=== PATIENT | female | born 1965 | race Caucasian/White ===

== ENCOUNTER 2018-03-14 17:26 | Emergency (ER) | payer OTHER ==
[2018-03-14 17:41] VITALS: TEMP 100; BMI 26.4
[2018-03-14] MEDS ORDERED: SODIUM CHLORIDE 1,000 ML IV STA (17:47)
[2018-03-14] MEDS ORDERED: ACETAMINOPHEN 1000 MG/100 ML VIAL (NON FORMULARY) IVPB ONE (17:47)
[2018-03-14] MEDS ORDERED: ACETAMINOPHEN INJECTION 100 ML IVPB ONE (18:17)
[2018-03-14 18:24] LABS: BASO % 0.1 % (0-2.0); EOS % 2.3 % (0-4.5); HEMATOCRIT 36.9 % (32.4-45.2); LYMPH % 4.2 % (8-40); MCH 30.4 pg (25.7-33.7); MCHC 35.2 g/dl (32.0-36.0); MEAN CELL VOLUME 86.4 fl (80-96); MEAN PLT VOLUME 7.8 fl (7.5-11.1); MONO % 0.6 % (3.8-10.2); NEUT % 92.8 % (42.8-82.8); PLATELET COUNT 174 K/MM3 (134-434); RBC 4.27 M/mm3 (3.60-5.2); RDW 13.3 % (11.6-15.6); WHITE BLOOD COUNT 8.3 K/mm3 (4.0-10.0)
--- NOTE | 2018-03-14 18:33 | PDOC ---
History of Present Illness - History of Present Illness Initial Comments: 03/14/18 18:41 The patient is a 52 year old female, with a significant past medical history of HLD (diet controlled), who presents to the emergency department with, rigors and chills. She endorses a minute long episode of rigors while seeing a patient in her office today. She notes a associated weakness, loose stools, and one episode of nausea with emesis. She denies recent headache or dizziness. She denies recent dysuria, frequency, urgency or hematuria. She denies recent chest pain or shortness of breath. Allergies: NKDA <Catalina Chang - Last Filed: 03/14/18 18:46> - General History Source: Patient Exam Limitations: No Limitations <Dioni Francisco - Last Filed: 03/14/18 19:09> - General Chief Complaint: SIRS, Suspected/Possible Stated Complaint: FEVER Time Seen by Provider: 03/14/18 17:28 Past History <Catalina Chang - Last Filed: 03/14/18 18:46> - Past Medical History COPD: No - Suicide/Smoking/Psychosocial Hx Smoking History: Never smoked <Dioni Francisco - Last Filed: 03/14/18 19:09> - Past Medical History Allergies/Adverse Reactions: Allergies Allergy/AdvReac Type Severity Reaction Status Date / Time No Known Allergies Allergy Verified 03/14/18 17:36 Review of Systems - Review of Systems Able to Perform ROS?: Yes Comments:: 03/14/18 18:41 +GENERAL/CONSTITUTIONAL: +fever +chills. +weakness. HEAD, EYES, EARS, NOSE AND THROAT: No change in vision. No ear pain or discharge. No sore throat. CARDIOVASCULAR: No chest pain or shortness of breath. RESPIRATORY: No cough, wheezing, or hemoptysis. +GASTROINTESTINAL: +nausea, +vomiting, +diarrhea GENITOURINARY: No dysuria, frequency, or change in urination. MUSCULOSKELETAL: No joint or muscle swelling or pain. No neck or back pain. SKIN: No rash NEUROLOGIC: No headache, vertigo, loss of consciousness, or change in strength/ sensation. ENDOCRINE: No increased thirst. No abnormal weight change. HEMATOLOGIC/LYMPHATIC: No anemia, easy bleeding, or history of blood clots. ALLERGIC/IMMUNOLOGIC: No hives or skin allergy. All Other Systems: Reviewed and Negative <Catalina Chang - Last Filed: 03/14/18 18:46> *Physical Exam - Vital Signs Last Vital Signs Temp Pulse Resp BP Pulse Ox 100.0 F H 103 H 136/85 99 03/14/18 17:36 03/14/18 17:36 03/14/18 17:36 03/14/18 17:36 - Physical Exam Comments: 03/14/18 18:47 GENERAL: Awake, alert, and fully oriented, in no acute distress HEAD: No signs of trauma EYES: PERRLA, EOMI, sclera anicteric, conjunctiva clear NECK: Normal ROM, supple, no lymphadenopathy, JVD, or masses LUNGS: Breath sounds equal, clear to auscultation bilaterally. No wheezes, and no crackles HEART: Regular rate and rhythm, normal S1 and S2, no murmurs, rubs or gallops ABDOMEN: Soft, nontender. No guarding, no rebound. No masses EXTREMITIES: Normal range of motion, no edema. No clubbing or cyanosis. No cords, erythema, or tenderness NEUROLOGICAL: Cranial nerves II through XII grossly intact. Normal speech, normal gait SKIN: Warm, Dry, normal turgor, no rashes or lesions noted. <Catalina Chang - Last Filed: 03/14/18 18:46> - Vital Signs Last Vital Signs Temp Pulse Resp BP Pulse Ox 100.0 F H 103 H 136/85 99 03/14/18 17:36 03/14/18 17:36 03/14/18 17:36 03/14/18 17:36 <Dioni Francisco - Last Filed: 03/14/18 19:09> Moderate Sedation - Procedure Monitoring Vital Signs: Procedure Monitoring Vital Signs Temperature 100.0 F H 03/14/18 17:36 Pulse Rate 103 H 03/14/18 17:36 Respiratory Rate Blood Pressure 136/85 03/14/18 17:36 O2 Sat by Pulse Oximetry (%) 99 03/14/18 17:36 <Catalina Chang - Last Filed: 03/14/18 18:46> - Procedure Monitoring Vital Signs: Procedure Monitoring Vital Signs Temperature 100.0 F H 03/14/18 17:36 Pulse Rate 103 H 03/14/18 17:36 Respiratory Rate Blood Pressure 136/85 03/14/18 17:36 O2 Sat by Pulse Oximetry (%) 99 03/14/18 17:36 <Dioni Francisco - Last Filed: 03/14/18 19:09> ED Treatment Course - LABORATORY CBC & Chemistry Diagram: 03/14/18 18:00 03/14/18 18:00 - ADDITIONAL ORDERS Additional order review: 03/14/18 18:00 RBC 4.27 MCV 86.4 MCHC 35.2 RDW 13.3 MPV 7.8 Neutrophils % 92.8 H Lymphocytes % 4.2 L Monocytes % 0.6 L Eosinophils % 2.3 Basophils % 0.1 - Medications Given in the ED: ED Medications Discontinued Medications Generic Name Dose Route Start Last Admin Trade Name Freq PRN Reason Stop Dose Admin Acetaminophen 1,000 mg 03/14/18 17:47 03/14/18 18:24 Ofirmev Injection - IVPB 03/14/18 17:48 1,000 mg ONCE ONE Administration Sodium Chloride 1,000 mls @ 2,000 mls/hr 03/14/18 17:47 03/14/18 18:24 Normal Saline - IV 03/14/18 18:16 2,000 mls/hr ASDIR STA Administration <Catalina Chang - Last Filed: 03/14/18 18:46> - LABORATORY CBC & Chemistry Diagram: 03/14/18 18:00 03/14/18 18:00 <Dioni Francisco - Last Filed: 03/14/18 19:09> Medical Decision Making - Medical Decision Making 03/14/18 18:13 A portion of this note was documented by scribe services under my direction. I have reviewed the details of the note, within reason, and agree with the documentation with the following case summary and management plan written by me. Patient treated in the ED. Nursing notes are reviewed and incorporated into the medical decision-making. Vital signs reviewed. Peripheral IV access obtained by the nurse, laboratory studies are drawn and sent, reviewed and interpreted by myself. 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 Woke up today feeling "run-down" but no other symptoms. While seeing a patient in her office, had a minute of rigors. Myra weak, had one episode of nausea and vomiting and some loose stools. Reported some abdominal cramping that now resolved. Denies coughing. Denies dysuria. Pt took alleve and came into the ER. I suspect pt may have viral syndrome vs influenza vs gastroenteritis. Given rigors, will obtain CBC, CMP, lipase, blood cultures, UA. Give IVF, UA. Pt already feels better. Reassess. 03/14/18 19:07 CBC, BMP 03/14/18 18:00 03/14/18 18:00 CMP Sodium 140 mmol/L (136-145) 03/14/18 18:00 Potassium 3.7 mmol/L (3.5-5.1) 03/14/18 18:00 Chloride 106 mmol/L (98-107) 03/14/18 18:00 Carbon Dioxide 25 mmol/L (21-32) 03/14/18 18:00 Anion Gap 8 MMOL/L (8-16) 03/14/18 18:00 BUN 14 mg/dL (7-18) 03/14/18 18:00 Creatinine 0.7 mg/dL (0.55-1.3) 03/14/18 18:00 Creat Clearance w eGFR > 60 (>60) 03/14/18 18:00 Random Glucose 91 mg/dL (74-106) 03/14/18 18:00 Calcium 8.7 mg/dL (8.5-10.1) 03/14/18 18:00 Total Bilirubin 0.4 mg/dL (0.2-1) 03/14/18 18:00 AST 15 U/L (15-37) 03/14/18 18:00 ALT 22 U/L (13-61) 03/14/18 18:00 Alkaline Phosphatase 63 U/L (45-117) 03/14/18 18:00 Total Protein 6.9 g/dl (6.4-8.2) 03/14/18 18:00 Albumin 4.0 g/dl (3.4-5.0) 03/14/18 18:00 Lipase 148 U/L (73-393) 03/14/18 18:00 Pt feels significantly better. She defers on influenza swabbing. However, in her office, pt has been exposed to a lot of flu (and pt did not receive flu vaccination). Will empirically start on tamiflu. Pt will obtain prescription from her who is a physician. Supportive care and follow up with PMD. <Dioni Francisco - Last Filed: 03/14/18 19:09> *DC/Admit/Observation/Transfer - Attestations Scribe Attestion: 03/14/18 18:42 Documentation prepared by Catalina Chang, acting as medical office administrator for Dioni Francisco MD. <Catalina Chang - Last Filed: 03/14/18 18:46> - Discharge Dispostion Decision to Admit order: No <Dioni Francisco - Last Filed: 03/14/18 19:09> Diagnosis at time of Disposition: Viral syndrome - Discharge Dispostion Disposition: HOME Condition at time of disposition: Stable - Patient Instructions Printed Discharge Instructions: DI for Viral Syndrome Additional Instructions: Please take 75 mg tamiflu every day for 5 days. Take ibuprofen and/or tylenol for fever. It may take several days before your symptoms feel better. Follow up with your doctor.
[2018-03-14 18:50] LABS: ALK PHOS 63 U/L (45-117); ANION GAP 8 MMOL/L (8-16); BILIRUBIN,TOTAL 0.4 mg/dL (0.2-1); BLOOD UREA NITROGEN 14 mg/dL (7-18); CALCIUM 8.7 mg/dL (8.5-10.1); CHLORIDE 106 mmol/L (98-107); CO2 25 mmol/L (21-32); CREATININE 0.7 mg/dL (0.55-1.3); GLUCOSE,RANDOM 91 mg/dL (74-106); LIPASE 148 U/L (73-393); POTASSIUM 3.7 mmol/L (3.5-5.1); SGOT/AST 15 U/L (15-37); SGPT/ALT 22 U/L (13-61); SODIUM 140 mmol/L (136-145); TOT PROT 6.9 g/dl (6.4-8.2)
[2018-03-14] MEDS ORDERED: OSELTAMIVIR PHOSPHATE 75 MG CAPSULE PO ONE (19:06)
[2018-03-14 19:32] VITALS: BP 106/69; PULSE 95
[2018-03-14] MEDS ORDERED: OSELTAMIVIR PHOSPHATE 75 MG CAPSULE ONE (19:39)
[2018-03-14 20:05] LABS: PLATELET ESTIMATE ADEQUATE
== END 2018-03-14 20:17 | disposition home or self-care (01) ==
LOC: JER 17:26
PROC: 3E033NZ Introduction of Analgesics, Hypnotics, Sedatives into Peripheral Vein, Percutaneous Approach (ICD-10-PCS; principal; 2018-03-14)
DX: B34.9 Viral infection, unspecified (principal); E78.5 Hyperlipidemia, unspecified
CPT/HCPCS: 36415; 80053; 83690; 85025; 87040; 99281-25; J0131; J7030